=== PATIENT | female | born 1980 | race Caucasian/White ===

== ENCOUNTER → 2016-09-17 | Day surgery (SDC) | payer OTHER ==
[~2016-09-17] VITALS: Ht 154.9 cm; Wt 48.9 kg
[~2016-09-17] MED LIST: ACETAMINOPHEN 1000 MG/100 ML VIAL IV ONE; APREPITANT 40 MG CAP ONE; BUPIVACAINE/EPINEPHRINE 0.25% PF 30 ML VIAL ONE; BUPIVACAINE/EPINEPHRINE 0.5% PF 30 ML VIAL ONE; DEXAMETHASONE SOD PHOS 4 MG/ML VIAL ONE; DO NOT ADM ANY ANTICOAGULANT DRUGS XX PRN; FAMOTIDINE 20 MG/2 ML VIAL ONE; FERR1TAB58 PO; INSULIN HUMAN REGULAR 1,000 UNITS/10 ML VIAL SQ PRN; KETOROLAC TROMETHAMINE 60 MG/2 ML (IM) VIAL IM ONE; LACTATED RINGER'S 1000 ML INJ 1,000 ML IV ONE; LACTATED RINGER'S 1000 ML IV SCH; LACTCAP8 PO; LEVO75TA3 PO; LIOT5TAB3 PO; METOPROLOL TARTRATE 25 MG TAB PO PRN; MIDAZOLAM HCL 2 MG/2 ML VIAL ONE; MULT-135 PO; ONDANSETRON HCL 4 MG/2 ML VIAL IV PUSH ONE; PERC5TAB12 PO; PROPOFOL 200 MG/20 ML AMP IV ONE; SODIUM CHLORID 0.9% 500 ML IV SCH; TRIPCAP4 PO; VITA10007 PO; VITA2000 PO; ePHEDrine/NS 50 MG/5 ML SYR IV ONE; fentaNYL CITRATE 250 MCG/5 ML AMP ONE
[2016-09-17 09:53] LABS: MEAN CORPUSCULAR HGB CONC 36.2 % (32.0-36.0)
[2016-09-17 10:16] VITALS: BP 129/98; PULSE 98; RESP 18; TEMP 98.2; O2SAT 99
[2016-09-17 10:19] LABS: AUTOMATED NEUTROPHIL # 3.4 TH/MM3 (1.8-7.7); BASOPHIL % 0.5 % (0.0-2.0); EOSINOPHIL % 0.5 % (0.0-4.0); HEMATOCRIT 40.7 % (35.0-46.0); LYMPH % 26.2 % (9.0-44.0); LYMPHOCYTE # 1.4 TH/MM3 (1.0-4.8); MEAN CELL VOLUME 85.3 FL (80.0-100.0); MEAN CORPUSCULAR HEMOGLOBIN 30.9 PG (27.0-34.0); MONO % 6.7 % (0.0-8.0); NEUT % 66.1 % (16.0-70.0); PLATELET COUNT 156 TH/MM3 (150-450); RED BLOOD COUNT 4.78 MIL/MM3 (4.00-5.30); WHITE BLOOD COUNT 5.2 TH/MM3 (4.0-11.0)
[2016-09-17 10:29] LABS: HEMO FLAGS AUTO DIFF
[2016-09-17 11:14] LABS: PLATELET ESTIMATE SMEAR NORMAL (NORMAL); PLATELET MORPHOLOGY NORMAL (NORMAL); SCAN/DIFF AUTO DIFF CONFIRMED
--- NOTE | 2016-09-17 14:07 | HHI.DCPOC ---
Discharge Care Plan Diagnosis: (1) Ovarian cyst Report Symptoms to Your Doctor -Temperate above 100.5 degrees -Redness, of incision or excessive or foul smelling drainage -Unusual pain or calf pain -Increased vaginal bleeding -Painful or difficulty urinating -Feelings of extreme sadness or anxiety after 2 weeks Goals to Promote Your Health * To prevent worsening of your condition and complications * To maintain your health at the optimal level Directions to Meet Your Goals Take your medications as prescribed Follow your dietary instruction Follow activity as directed Ensure plenty of rest for recovery Drink fluids for hydration Keep your appointments as scheduled Take your immunizations and boosters as scheduled If your symptoms worsen call your PCP, if no PCP go to Urgent Care Center or Emergency Room Smoking is Dangerous to Your Health. Avoid second hand smoke Call the 24-hour crisis hotline for domestic abuse at Neil Jefferson MD Sep 17, 2016 14:07
--- NOTE | 2016-09-17 14:08 | PD.OP ---
Operative Report Date of Surgery: Sep 17, 2016 Preoperative Diagnosis: (1) Ovarian cyst Postoperative Diagnosis: (1) Ovarian cyst Procedure: operative LSC RAMONE and right cystectomy Anesthesia: general brian Surgeon: Neil Jefferson Tomato Pulper Operator(s): shivam Sexton MS3 Neil Jefferson MD Sep 17, 2016 14:08
[2016-09-17 15:14] VITALS: TEMP 97.8; O2SAT 99
[2016-09-17 15:35] VITALS: BP 101/64; PULSE 68
--- NOTE | 2016-09-18 09:17 | MP ---
cc: RAMYA JEFFERSON M.D. DATE OF PROCEDURE 09/17/2016 PROCEDURE Operative laparoscopy with a right cystectomy, lysis of adhesions. PREOPERATIVE DIAGNOSIS 8-cm right ovarian cyst. POSTOPERATIVE DIAGNOSES 1. Right and left ovarian cysts. 2. Multiple adhesions. 3. Bilateral hydrosalpinx. 4. Chocolate cyst near the left ovary. SURGEON Dr. Ramya Jefferson TELEGRAPH LINEMAN Aric Sexton, MS3 COMPLICATIONS None. FINDINGS 1. The patient had bilateral hydrosalpinx. 2. Adhesions of the fallopian tubes to the ovaries. 3. Ovaries both enlarged with cystic masses. 4. Chocolate cyst near the left ovary. SPECIMENS Right ovarian cyst. ANESTHESIA General, Dr. Rueda. PROCEDURE IN DETAIL After informed consent the patient was taken to the operating room where she was placed under general anesthesia, placed in spine position, legs in the Yellofin stirrups. The abdomen, perineum and vagina were prepped and draped in normal sterile fashion. The bladder was drained with a red Hilliard catheter. Time-out was taken to identify the procedure and the patient. Once the time-out was taken and everyone agreed, all instruments were available, no antibiotics were given, we proceeded to place a speculum into the vagina, grasped the cervix with a single-tooth tenaculum, placed an acorn uterine manipulator into the cervix. Gloves were changed. A 5-mm infraumbilical incision was then made after injection of 0.25% Marcaine with epinephrine. We entered the abdomen under direct visualization. The abdomen was insufflated, suprapubic and left lower quadrant trocars were placed, a 10-mm at the suprapubic region and a 5-mm left lower quadrant trocar. Visualization of the lower abdomen revealed adhesions of the pelvis, the fallopian tubes to the ovaries. We immediately started to dissect the right fallopian tube away from the right ovary which was larger than the left. As we dissected the ovary, the hydrosalpinx resolved itself, fluid drained and we completely freed the ovary from all adhesions and freed it from the ovary, then brought the ovary out of the cul-de-sac and the right ovarian fossa with filmy adhesions. We drained the cyst which was a tea-colored fluid within that cyst, then opened the ovary and excised the cyst from the inside dissecting out. There was some bleeding coming from the uteroovarian ligament; this had to be cauterized with bipolar cautery and that vessel was sacrificed but the ovary remained well vascularized by the other blood vessel, the infundibulopelvic. As we progressed through the left side, the left fallopian tube was swollen also, was opened and drained. The left ovary was dissected with its chocolate cyst which was drained, irrigated well. There was no cystic mass to remove as this seemed to be a possible endometrioma. As we dissected this left ovary, we freed it up from all its adhesions to the posterior cul-de-sac, removed all adhesions in the ovary was freely mobile. At the end of procedure, good hemostasis was achieved. The uteroovarian ligament on the right had been cauterized. Good hemostasis was achieved. The procedure was ended. All instruments were removed from the abdomen and the vagina. The fascia was closed at the suprapubic region. The skin was closed. Band-Aids were placed. The patient was awakened and taken to the recovery room in stable condition. Lap and instrument counts reported as correct. The patient was taken to the recovery room in stable condition. Specimens were only the right ovarian cyst. MD JAMSHID Gabriel/ULISSES /1:48 PM /8:54 AM
== END | disposition home or self-care (01) ==
LOC: HSDC 09:37
PROVIDERS: ATTEND Obstetrics & Gynecology
DX: N83.201 Unspecified ovarian cyst, right side (principal); N83.202 Unspecified ovarian cyst, left side; N70.11 Chronic salpingitis; N80.1 Endometriosis of ovary; N73.6 Female pelvic peritoneal adhesions (postinfective)
CPT/HCPCS: 00840; 58662; 84703; 85025; 88305; C1765; J0131; J1100; J1885; J2250; J2405; J3010; J7120; J8501; 88304